=== PATIENT | female | born 1985 | race Caucasian/White ===

== ENCOUNTER → 2018-04-11 | Outpatient (CLI) | payer OTHER ==
[~2018-04-11] MED LIST: Amoxicillin500 MG PO; IBUP800 PO; OXYACE5T PO; Verotin-Gr Cap1 EACH PO
[2018-04-11 16:52] LABS: U Amphetamine Screen Not Detected; U Barbituate Screen Not Detected; U Benzodiazapine Screen Not Detected; U Buprenorphine Screen Not Detected; U Cannabinoids Screen Not Detected; U Cocaine Screen Not Detected; U Methadone Screen DETECTED; U Methamphetamine Screen Not Detected; U Opiates Screen Not Detected; U Oxycodone Screen Not Detected; U Phencyclidine Screen Not Detected; U Propoxyphene Screen Not Detected
== END ==
LOC: LAB SHORT 15:45 → LAB 15:45
PROVIDERS: Nurse Practitioner Family
DX: Z51.81 Encounter for therapeutic drug level monitoring (principal)

== ENCOUNTER 2018-05-12 18:55 | Emergency (ER) | payer OTHER ==
[~2018-05-12] VITALS: Ht 175.3 cm; Wt 58.5 kg
[2018-05-12] MEDS ORDERED: BRINTELLIX10 MG PO (19:42)
[2018-05-12] MEDS ORDERED: METH10 PO (19:43)
[2018-05-12] MEDS ORDERED: Flonase 0.05% N16 GM (20:15)
[2018-05-12] MEDS ORDERED: Amoxicillin500 MG PO (20:15)
== END 2018-05-12 20:42 | disposition home or self-care (01) ==
LOC: ER 18:55
DX: H66.91 Otitis media, unspecified, right ear (principal); Z79.899 Other long term (current) drug therapy; F17.200 Nicotine dependence, unspecified, uncomplicated
CPT/HCPCS: 99282

== ENCOUNTER 2018-09-29 20:58 | Emergency (ER) | payer OTHER ==
[~2018-09-29] VITALS: Ht 175.3 cm; Wt 63.5 kg
[~2018-09-29 20:58] MED LIST changes: +BRINTELLIX10 MG PO; +Flonase 0.05% N16 GM; +METH10 PO
== END 2018-09-29 23:55 | disposition home or self-care (01) ==
LOC: ER 20:58
DX: S60.551A Superficial foreign body of right hand, initial encounter (principal); W45.8XXA Other foreign body or object entering through skin, initial encounter; Z79.899 Other long term (current) drug therapy; F17.200 Nicotine dependence, unspecified, uncomplicated
CPT/HCPCS: 90471; 90714; 99283-25

== ENCOUNTER → 2019-02-01 | Outpatient (CLI) | payer OTHER ==
[2019-02-05 13:08] LABS: HPV 16 Negative (Negative); HPV 18 Negative (Negative); HPV OTHER HR TYPES Negative (Negative)
== END | disposition home or self-care (01) ==
LOC: LAB 15:00 → LAB SHORT 15:00
PROVIDERS: Internal Medicine
DX: Z01.419 Encounter for gynecological examination (general) (routine) without abnormal findings (principal)
CPT/HCPCS: 87624; G0123

== ENCOUNTER 2023-02-25 12:12 | Emergency (ER) | payer OTHER ==
[~2023-02-25] VITALS: Ht 175.3 cm; Wt 72.6 kg
[2023-02-25 14:08] LABS: BASOPHILS ABSOLUTE AUTO 0.05 K/mm3 (0.00-0.23); BASOPHILS PERCENT AUTO 1 % (0-2); EOSINOPHILS ABSOLUTE AUTO 0.17 K/mm3 (0.00-0.68); EOSINOPHILS PERCENT AUTO 2 % (0-6); Hematocrit 40.3 % (33.0-51.0); Hemoglobin 13.5 g/dL (11.5-16.0); IMMATURE GRAN ABSOLUTE AUTO 0.02 K/mm3 (0.00-0.10); IMMATURE GRAN PERCENT AUTO 0 % (0-1); LYMPHOCYTES ABSOLUTE AUTO 0.89 K/mm3 (0.84-5.20); LYMPHOCYTES PERCENT AUTO 9 % (21-46); MONOCYTES ABSOLUTE AUTO 0.77 K/mm3 (0.16-1.47); MONOCYTES PERCENT AUTO 8 % (4-13); Mean Corpuscular HGB 27.8 pg (26.0-34.0); Mean Corpuscular HGB Conc 33.5 g/dL (31.5-36.5); Mean Corpuscular Volume 83 fL (80-100); Mean Platelet Volume 9.5 fL (9.1-12.4); NEUTROPHILS ABSOLUTE AUTO 7.75 K/mm3 (1.96-9.15); NEUTROPHILS PERCENT AUTO 80 % (41-73); Platelet Count 234 K/mm3 (150-400); RDW Coefficient Variation 13.3 % (11.7-14.2); RDW Standard Deviation 40.6 fL (35.1-46.3); Red Blood Cell Count 4.85 M/mm3 (3.80-5.20); White Blood Cell Count 9.65 K/mm3 (4.00-11.30)
[2023-02-25 15:09] LABS: Bilirubin, Total 0.4 mg/dL (0.1-1.0); Bun/Creatinine Ratio 18.4 (12.0-20.0); Calcium, Blood 9.1 mg/dL (8.5-10.1); Creatinine, Blood 0.76 mg/dL (0.40-1.00); Potassium, Blood 3.9 mmol/L (3.5-5.5)
[2023-02-25] MEDS ORDERED: CEPH500 PO (16:55)
[2023-02-25 17:00] VITALS: BP 108/63
== END 2023-02-25 17:18 | disposition home or self-care (01) ==
LOC: ER 12:12
PROVIDERS: Emergency Medicine
DX: L03.115 Cellulitis of right lower limb (principal); R07.9 Chest pain, unspecified; F17.200 Nicotine dependence, unspecified, uncomplicated; Z79.899 Other long term (current) drug therapy
CPT/HCPCS: 36415; 71045; 80053; 83880; 84484; 85025; 93005; 93010; 93971; 99285-25

== ENCOUNTER 2024-02-07 20:47 | Emergency (ER) | payer OTHER ==
[~2024-02-07] VITALS: Ht 175.3 cm; Wt 63.5 kg
[~2024-02-07 20:47] MED LIST changes: +CEPH500 PO; +MIRALAX17 GM PO
[2024-02-07 21:01] VITALS: BP 124/82
[2024-02-07 22:00] LABS: Source, Urine Clean Catch
[2024-02-07 22:03] LABS: Appearance, Urine Clear (Clear); Bilirubin, Urine Neg (Neg); Blood, Urine 2+ (Neg); Color, Urine Yellow (P-Yellow); Glucose Qualitative, Urine Neg (Neg); Ketones, Urine Neg (Neg); Leukocyte Esterase, Urine 3+ (Neg); Nitrite, Urine Neg (Neg); Protein, Urine Neg (Neg); Specific Gravity, Urine 1.015 (1.003-1.022); Urobilinogen, Urine NORM (Normal)
[2024-02-07 22:26] LABS: Candida Group, PCR NOT DETECTED (NOT DETECT); Candida glabrata-krusei, PCR NOT DETECTED (NOT DETECT)
[2024-02-07 22:30] LABS: Bacteria Many /hpf; Red Blood Cells, Urine 0-2 /hpf (0-2); Squamous Epithelial Cells Many /hpf (Few)
[2024-02-07 22:57] LABS: Chlamydia Trachomatis Cervix NOT DETECTED (NOT DETECT)
[2024-02-08 00:01] LABS: Bacterial Vaginosis PCR Positive (NEGATIVE); Neisseria Gonorrhoea Cervix DETECTED (NOT DETECT)
== END 2024-02-07 23:08 | disposition left against medical advice (07) ==
LOC: ER 20:47
PROVIDERS: Student in an Organized Health Care Education/Training Program
DX: N89.8 Other specified noninflammatory disorders of vagina (principal); Z53.21 Procedure and treatment not carried out due to patient leaving prior to being seen by health care provider
CPT/HCPCS: 81001; 87086; 87481; 87491; 87591; 87661; 87801

== ENCOUNTER 2024-02-10 22:34 | Emergency (ER) | payer OTHER ==
[~2024-02-10] VITALS: Ht 175.3 cm; Wt 63.5 kg
[2024-02-10 22:43] VITALS: BP 107/59
[2024-02-11] MEDS ORDERED: Vibramycin100 MG PO (01:17)
[2024-02-11] MEDS ORDERED: Doxycycline Hyclate 100 MG TAB PO ONE (01:20)
[2024-02-11 01:53] LABS: Chlamydia Trachomatis Urine NOT DETECTED (NOT DETECT)
[2024-02-11 02:24] LABS: Neisseria Gonorrhoea Urine DETECTED (NOT DETECT)
== END 2024-02-11 01:44 | disposition home or self-care (01) ==
LOC: ER 22:34
PROVIDERS: Physician Assistant
DX: A64 Unspecified sexually transmitted disease (principal); F17.200 Nicotine dependence, unspecified, uncomplicated
CPT/HCPCS: 87491; 87591; 96372; 99283; A9270; J0696

== ENCOUNTER 2024-04-06 22:02 | Emergency (ER) | payer OTHER ==
[~2024-04-06] VITALS: Ht 175.3 cm; Wt 59.0 kg
[~2024-04-06 22:02] MED LIST changes: +Vibramycin100 MG PO
[2024-04-06 22:13] VITALS: BP 122/76
[2024-04-06 22:45] LABS: Source, Urine Clean Catch
[2024-04-06 22:48] LABS: Bilirubin, Urine Neg (Neg); Blood, Urine Neg (Neg); Glucose Qualitative, Urine Neg (Neg); Ketones, Urine 1+ (Neg); Leukocyte Esterase, Urine 1+ (Neg); Nitrite, Urine Neg (Neg); Protein, Urine 1+ (Neg); Urobilinogen, Urine 1+ (Normal)
[2024-04-06 22:51] LABS: Appearance, Urine Clear (Clear); Color, Urine Yellow (P-Yellow)
[2024-04-06 22:55] LABS: Amorphous Light (0-Heavy); Bacteria Few /hpf; Calcium Oxalate Crystals Few /hpf; Mucus Mod (0-Heavy); Red Blood Cells, Urine Not Seen /hpf (0-2); Squamous Epithelial Cells Few /hpf (Few)
[2024-04-07 00:27] LABS: Chlamydia Trachomatis Vaginal NOT DETECTED (NOT DETECT); Neisseria Gonorrhoea Vaginal NOT DETECTED (NOT DETECT)
[2024-04-07] MEDS ORDERED: Flagyl500 MG PO (00:35)
[2024-04-07] MEDS ORDERED: MetroNIDAZOLE 500 MG Tab PO ONE (00:35)
[2024-04-09 12:44] LABS: HIV 1,2 COMBO ANTIGEN/ANTIBODY Negative (Negative)
== END 2024-04-07 00:39 | disposition home or self-care (01) ==
LOC: ER 22:02
PROVIDERS: Physician Assistant
DX: N76.0 Acute vaginitis (principal); F17.200 Nicotine dependence, unspecified, uncomplicated
CPT/HCPCS: 36415; 81001; 87389; 87491; 87591; 99283; A9270

== ENCOUNTER 2024-05-05 09:19 | Emergency (ER) | payer OTHER ==
[~2024-05-05] VITALS: Ht 172.7 cm; Wt 65.0 kg
[~2024-05-05 09:19] MED LIST changes: +Flagyl500 MG PO
[2024-05-05 09:45] VITALS: BP 108/72
[2024-05-05 10:34] LABS: CORONAVIRUS COVID-19 AG Negative (NEGATIVE); INFLUENZA A AG Negative (NEGATIVE); INFLUENZA B AG Negative (NEGATIVE)
[2024-05-05] MEDS ORDERED: PredniSONE 20 MG Tab PO ONE (12:50)
[2024-05-05] MEDS ORDERED: Amoxicillin 500 MG Cap PO ONE (12:50)
[2024-05-05] MEDS ORDERED: Ketorolac Tromethamine 30mg Vial IM ONE (12:50)
[2024-05-05] MEDS ORDERED: Prednisone20 MG PO (13:02)
[2024-05-05] MEDS ORDERED: AMOCLA875 PO (13:02)
[2024-05-05] MEDS ORDERED: Amoxicillin/Clavulanate K 875 MG Tab PO ONE (13:05)
[2024-05-05] MEDS ORDERED: Zithromax250 MG PO (13:18)
== END 2024-05-05 13:37 | disposition home or self-care (01) ==
LOC: ER 09:19
PROVIDERS: Physician Assistant
DX: J15.9 Unspecified bacterial pneumonia (principal); F17.210 Nicotine dependence, cigarettes, uncomplicated
CPT/HCPCS: 71046; 87428-QW; 96372; 99285-25; A9270; J1885; J7512

== ENCOUNTER → 2024-06-10 | Outpatient (CLI) | payer OTHER ==
[~2024-06-10] MED LIST changes: +AMOCLA875 PO; +Prednisone20 MG PO; +Zithromax250 MG PO
[2024-06-10 17:05] LABS: Bacterial Vaginosis PCR Positive (NEGATIVE); Candida Group, PCR DETECTED (NOT DETECT); Candida glabrata-krusei, PCR DETECTED (NOT DETECT)
== END ==
LOC: LAB SHORT 14:32 → LAB 14:32
PROVIDERS: Internal Medicine
DX: B37.31 Acute candidiasis of vulva and vagina (principal)
CPT/HCPCS: 81515

== ENCOUNTER 2024-07-06 18:07 | Emergency (ER) | payer OTHER ==
[~2024-07-06] VITALS: Ht 175.3 cm; Wt 63.5 kg
[2024-07-06 18:40] VITALS: BP 107/58
[2024-07-06] MEDS ORDERED: Lidocaine/Tetracaine/Epinephr 3 ML GEL SYRINGE TOP ONE (20:25)
[2024-07-06] MEDS ORDERED: Trimethoprim/Sulfamethoxazole DS Tab PO ONE (21:15)
[2024-07-06] MEDS ORDERED: BACTRIM DS TAB1 EAC1 PO (21:16)
== END 2024-07-06 21:34 | disposition home or self-care (01) ==
LOC: ER 18:07
DX: L02.214 Cutaneous abscess of groin (principal); Z79.2 Long term (current) use of antibiotics; Z79.899 Other long term (current) drug therapy
CPT/HCPCS: 10060; 99283-25; A9270

== ENCOUNTER 2025-02-26 12:44 | Emergency (ER) | payer OTHER ==
[~2025-02-26] VITALS: Ht 175.3 cm; Wt 63.5 kg
[~2025-02-26 12:44] MED LIST changes: +BACTRIM DS TAB1 EAC1 PO
[2025-02-26 13:20] LABS: BASOPHILS ABSOLUTE AUTO 0.05 K/mm3 (0.00-0.23); BASOPHILS PERCENT AUTO 1 % (0-2); EOSINOPHILS ABSOLUTE AUTO 0.10 K/mm3 (0.00-0.68); EOSINOPHILS PERCENT AUTO 1 % (0-6); Hematocrit 31.2 % (33.0-51.0); Hemoglobin 10.3 g/dL (11.5-16.0); IMMATURE GRAN ABSOLUTE AUTO 0.03 K/mm3 (0.00-0.10); IMMATURE GRAN PERCENT AUTO 0 % (0-1); LYMPHOCYTES ABSOLUTE AUTO 1.23 K/mm3 (0.84-5.20); LYMPHOCYTES PERCENT AUTO 12 % (21-46); MONOCYTES ABSOLUTE AUTO 0.98 K/mm3 (0.16-1.47); MONOCYTES PERCENT AUTO 10 % (4-13); Mean Corpuscular HGB Conc 33.0 g/dL (31.5-36.5); Mean Corpuscular Volume 80 fL (80-100); NEUTROPHILS ABSOLUTE AUTO 7.92 K/mm3 (1.96-9.15); NEUTROPHILS PERCENT AUTO 77 % (41-73); NRBC ABSOLUTE 0.00 K/mm3 (0.00-0.02); NRBC Auto 0.0 /100 WBC (0.0-0.2); Platelet Count 230 K/mm3 (150-400); RDW Coefficient Variation 15.5 % (11.7-14.2); RDW Standard Deviation 45.2 fL (35.1-46.3)
[2025-02-26 13:49] LABS: Alanine Aminotransfer (ALT/SGP 19.0 U/L (12-78); Albumin, Blood 3.3 g/dL (3.4-5.0); Albumin/Globulin Ratio 0.9 (0.8-1.8); Anion Gap 9.0 mmol/L (3-11); Aspartate Aminotrans (AST/SGOT 17.0 U/L (12-37); Bilirubin, Total 0.5 mg/dL (0.1-1.0); Blood Urea Nitrogen 10.0 mg/dL (8-24); CO2, Blood 24.0 mmol/L (21-32); Calcium, Blood 8.7 mg/dL (8.5-10.1); Chloride, Blood 103.0 mmol/L (98-108); Creatinine, Blood 0.77 mg/dL (0.40-1.00); Globulin, Blood 3.7 g/dL (2.2-4.0); Glucose, Blood 121.0 mg/dL (70-99); Potassium, Blood 3.6 mmol/L (3.5-5.5); Sodium, Blood 132.0 mmol/L (136-145); Total Protein, Blood 7.0 g/dL (6.4-8.2)
[2025-02-26] MEDS ORDERED: Ipratropium Bromide INH 0.02% 0.5 mg/2.5ML Vial INH SCH (16:15)
[2025-02-26] MEDS ORDERED: Albuterol 2.5 MG/3 ML VIAL INH ONE (16:15)
[2025-02-26] MEDS ORDERED: AZIT250 PO (17:24)
[2025-02-26] MEDS ORDERED: ALBU90OI INH (17:24)
[2025-02-26 17:32] VITALS: BP 92/49
== END 2025-02-26 17:33 | disposition home or self-care (01) ==
LOC: ER 12:44
PROVIDERS: Emergency Medicine
DX: J06.9 Acute upper respiratory infection, unspecified (principal); J40 Bronchitis, not specified as acute or chronic; F17.200 Nicotine dependence, unspecified, uncomplicated; Z79.899 Other long term (current) drug therapy
CPT/HCPCS: 71046; 80053; 85025; 99284-25; A9270

== ENCOUNTER 2025-04-08 02:01 | Emergency (ER) | payer OTHER ==
[~2025-04-08] VITALS: Ht 175.3 cm; Wt 59.0 kg
[~2025-04-08 02:01] MED LIST changes: +ALBU90OI INH; +AZIT250 PO
[2025-04-08 02:57] VITALS: BP 116/73
[2025-04-08 03:43] LABS: Source, Urine Clean Catch
[2025-04-08 03:57] LABS: Bilirubin, Urine Neg (Neg); Glucose Qualitative, Urine Neg (Neg); Ketones, Urine Neg (Neg); Leukocyte Esterase, Urine Neg (Neg); Specific Gravity, Urine 1.020 (1.003-1.022); Urobilinogen, Urine NORM (Normal)
[2025-04-08 04:12] LABS: Protein, Urine Neg (Neg)
[2025-04-08 04:17] LABS: Color, Urine Yellow (P-Yellow); Red Blood Cells, Urine Not Seen /hpf (0-2)
== END 2025-04-08 04:40 | disposition home or self-care (01) ==
LOC: ER 02:01
PROVIDERS: Student in an Organized Health Care Education/Training Program
DX: R82.998 Other abnormal findings in urine (principal); R30.0 Dysuria; F17.200 Nicotine dependence, unspecified, uncomplicated; Z79.899 Other long term (current) drug therapy
CPT/HCPCS: 81001; 81025; 99283